=== PATIENT | female | born 2000 | race Caucasian/White ===

== ENCOUNTER 2020-03-09 14:13 | Emergency (ER) | payer OTHER, SELFPAY ==
[2020-03-09 14:35] VITALS: BP 130/81; PULSE 90; RESP 16; TEMP 36.8; O2SAT 98
--- NOTE | 2020-03-09 14:40 | ED.GENADULT ---
HPI - General Adult General Chief complaint: Upper Respiratory Infection Stated complaint: ASthma and chest pains Time Seen by Provider: 03/09/20 14:40 Source: patient and RN notes reviewed Mode of arrival: ambulatory Limitations: no limitations History of Present Illness HPI narrative: 19-year-old female presents with complaints of upper respiratory infection, rhinorrhea, intermittent dry cough at night, and intermittent wheezing for the past 4 months. Isabelle with some relief. Masha says symptoms increased over the last 2-3 months with intermittent chest wall discomfort with deep breathing. No facial swelling. Intermittent dry cough at night. Nasal congestion and rhinorrhea. No chest pain or shortness of breath. No exacerbating factors. Denies fever or chills. Denies sore throat, headaches, weakness, fatigue, myalgia. Denies chest pain or dyspnea. Denies diarrhea, nausea, vomiting, and abdominal pain. Tolerating po intake well. Remains active. Denies recent traveling. Denies concern for COVID-19 or exposures been home since [id number] order except for essential household needs, limiting work (no exposure to the public), and return home per Masha. Masha denies being , LMP 11/2018 on continuous control. Some parts of this dictation were generated by voice recognition software and may contain typographical and/or grammatical inaccuracies. Related Data Home Medications Medication Instructions Recorded Confirmed norethindrone-e.estradiol-iron tablet 03/09/20 [12/11 (28)] quetiapine mg PO 03/09/20 Allergies Allergy/AdvReac Type Severity Reaction Status Date / Time No Known Drug Allergies Allergy Unknown Verified 01/15/19 16:51 Review of Systems Review of Systems: Narrative: CONSTITUTIONAL: Denies fever, chills, sweats. EYES: Denies visual changes, redness, discharge. ENT: Complains of rhinorrhea, congestion. Denies sore throat, otalgia. CARDIOVASCULAR: Denies chest pain, palpitations, edema. RESPIRATORY: Denies dyspnea. Complains of intermittent dry cough at night, intermittent wheezing. GASTROINTESTINAL: Denies abdominal pain, nausea, vomiting, diarrhea. GENITOURINARY: Denies dysuria, hematuria, abnormal discharge. SKIN: Denies rash or itching. MUSCULOSKELETAL: Denies acute back pain, joint pain, or myalgia. Complains of intermittent chest wall tenderness. NEUROLOGIC: Denies numbness or focal weakness. PSYCHIATRIC: Denies anxiety or depression. All systems reviewed & are unremarkable except as noted in HPI and below. [facility] Past Medical History Medical History (Updated 03/09/20 @ 17:27 by LUIS Manning) Allergies Bipolar disorder Surgical History Surgical History (Updated 03/09/20 @ 14:53 by LUIS Manning) No significant past surgical history Family History Family History (Updated 03/09/20 @ 14:54 by LUIS Manning) Mother Asthma Social History Social History (Updated 03/09/20 @ 14:54 by LUIS Manning) Smoking status: Never smoker Second hand tobacco smoke exposure: No Alcohol intake: never Substance use: never Living arrangements: with family Occupation/Education: occupation Gender identity (if verbalized by the patient): Female Comments At time of signature, agree with nurse past medical, surgical, social, and family history. There is no relevant family history pertinent to the presenting complaint. Exam Narrative: Exam Narrative: GENERAL: This is a well-nourished, well-developed patient, in no apparent distress. Talks in full sentences and ambulates with steady gait without dyspnea. HEAD: normocephalic, atraumatic. EYES: PERRL. Sclera clear/white. Vision is grossly intact. NOSE: External nose normal with no obvious nasal discharge, nares with moderate redness and enlarged turbinates, clear rhinorrhea. THROAT: Mucous membranes moist, posterior pharynx with PND, no erythema, no exudate, and normal tons
== END 2020-03-09 15:09 | disposition home or self-care (01) ==
PROVIDERS: Emergency Provider Nurse Practitioner Family; PCP Pediatrics
DX: J06.9 Acute upper respiratory infection, unspecified (principal); R03.0 Elevated blood-pressure reading, without diagnosis of hypertension
CPT/HCPCS: 99213; G0463

== ENCOUNTER 2024-07-29 15:50 | Emergency (ER) | payer BC, SELFPAY ==
[2024-07-29 15:56] VITALS: BP 134/80; PULSE 119; RESP 20; TEMP 37.1; O2SAT 100
[2024-07-29 16:23] LABS: EDINFLUBSCREEN Negative (Negative); EDSTREPNEGPOS1 Negative (Negative)
--- NOTE | 2024-07-29 16:27 | ED.URI ---
HPI - URI/Sore Throat General Chief Complaint: Upper Respiratory Infection Stated Complaint: throat Time Seen by Provider: 07/29/24 16:17 Source: patient, RN notes reviewed and old records reviewed Mode of arrival: ambulatory Limitations: no limitations History of Present Illness HPI Narrative: 23-year-old female to Express Care for complaint of sore throat and headache that started yesterday morning. Patient denies fever, difficulty swallowing, shortness of breath, ear pain, allergies, pertinent medical history. Patient tech cardiac in triage. Patient resting comfortably in exam room. Respirations even and nonlabored. Patient able to speak in full sentences without difficulty. Patient in no acute distress. Related Data Home Medications Medication Instructions Recorded Confirmed norethindrone 1 mg-ethinyl tablet 03/09/20 estradiol 20 mcg (21)-iron 75 mg (7) tablet (12/11 (28)) quetiapine 50 mg tablet,extended mg PO 03/09/20 release 24 hr Allergies Allergy/AdvReac Type Severity Reaction Status Date / Time No Known Drug Allergies Allergy Unknown Verified 01/15/19 16:51 Review of Systems Review of Systems: All systems reviewed & are unremarkable except as noted in HPI and below Constitutional: Constitutional: Reports as per HPI and Reports headache(s) Eyes: Eyes: Reports no additional eye complaints ENT: Reports as per HPI and Reports sore throat Cardiovascular: Cardiovascular: Reports no additional cardiovascular complaints, Denies chest pain and Denies dyspnea Respiratory: Respiratory: Reports no additional respiratory complaints, Denies cough and Denies dyspnea Musculoskeletal: Musculoskeletal: Reports no additional musculoskeletal complaints Neurologic: Reports system reviewed and no additional complaints, except as documented Psychiatric: Psychiatric: Reports no additional psychiatric complaints [facility] Past Medical History Medical History Allergies Bipolar disorder Surgical History Surgical History No significant past surgical history Family History Family History Mother Asthma Social History Social History Smoking status: Never smoker Second hand tobacco smoke exposure: No Alcohol intake: never Substance use: never Living arrangements: with family Occupation/Education: occupation Gender identity (if verbalized by the patient): Female Comments At the time of my signature, I reviewed and agree with the nursing past medical, surgical, social, and family history. There is no relevant family history pertinent to the patient complaint. Exam Const: General: cooperative, no acute distress, alert, tired appearing, uncomfortable and well nourished Nutritional Appearance: well nourished Orientation/consciousness: patient oriented x3 Limitations: no limitations HENMT: Head: normal to inspection Ears: external ears normal Face/Nose/Sinus: Normal external nose present, Normal nares present, normal facial exam, No erythema and No edema Face and sinus: normal facial exam, no erythema and no edema Mouth: Yes Normal oral and palatal mucosa present Throat: posterior oropharynx abnormal erythema Eyes: General: appearance normal, both eyes and all related structures Neck: Neck: normal visual inspection, full ROM and no meningeal signs Lymphatic: no lymphadenopathy noted and no lymphedema noted Chest: Chest palpation & inspection: normal inspection of the chest Resp: Effort & Inspection: normal respiratory effort and able to speak in complete sentences Auscultation: clear to auscultation bilaterally Cardio: Jugular venous distension: no JVD Rate: regular rate Rhythm: regular rhythm Back/Spine/Pelvis: Cervical Spine: cervi
[2024-08-04 15:35] LABS: EDINFLUASCREEN Negative (Negative)
== END 2024-07-29 16:39 | disposition home or self-care (01) ==
PROVIDERS: Emergency Provider Nurse Practitioner Family; PCP Physician Assistant
DX: J02.9 Acute pharyngitis, unspecified (principal); R51.9 Headache, unspecified; Z20.822 Contact with and (suspected) exposure to COVID-19
CPT/HCPCS: 87081; 87426; 87804; 87880; 99213; G0463

== ENCOUNTER 2025-01-27 18:07 | Emergency (ER) | payer OTHER, SELFPAY ==
--- NOTE | ~2025-01-27 | XR_ITS ---
XR foot RT min 3V Ordering provider: LUIS Madrid History: . Impression 1 cm from the sigrid by. Pt fell and twisted ankle coming down stairs . Comparison: None. FINDINGS: BONES: No acute fracture or dislocation. JOINT SPACES: Normal. No tarsal coalition. SOFT TISSUES: Normal. IMPRESSION: No acute osseous abnormality of the right foot. Reviewed, dictated and finalized at location A. [employer]
--- NOTE | ~2025-01-27 | XR_ITS ---
XR ankle RT min 3V Ordering provider: LUIS [place] History: . Fall . Comparison: None. FINDINGS: BONES: No acute fracture or dislocation. JOINT SPACES: Normal. SOFT TISSUES: Normal. Calcaneus spur. IMPRESSION: No acute osseous abnormality of the right ankle. Reviewed, dictated and finalized at location A. [employer]
--- OUTSIDE RECORDS SUMMARY | 2025-01-27 18:10 | XMS_ITS | Clinical Summary ---
Author Organization [facility] Address [address] [place] [address] Care Team Providers Care Reiki Practitioner Name Role Phone Unavailable Primary Care Provider Unavailabl e Source Comments [facility],non-owned Affiliates and Associated Physician Practices is amultiple site organization consisting of ambulatory clinics and hospital sitesin [place], [place], [place] and [place]. This disclosure is being madepursuant to the Care Everywhere program and may not contain all information available regarding this patient. Last updated 18.[facility] Allergies No known active allergies Medications * Be aware that medications may not be up to date on this document. Alwaysverify current medications with the patient. Medication Sig Dispensed Refills Start Date End Date Status AUROVELA FE 12/11 1-20 MG-MCG tablet TAKE 1 TABLET BY MOUTH ONCE DAILY 84 tablet 04/16/2022 Active Active Problems Problem Noted Date Diagnosed Date Anxiety and depression 08/06/2020 Overview (08/06/2020): Seroquel by pedgraeme 2019 Lexapro 2019, sleep issues Screening for condition 05/13/2018 Overview (05/13/2018): 05/10/2018: GC/CT/TV neg Immunizations Name Administration Dates Next Due DTaP VACCINE IM (6wk-6yrs) 06/30/2006,,02/16/2001,12/16 HEP A PEDS 2 DOSE 08/16/2007,06/30/2006 HEP B VACCINE, PED/ADOL 2001,2000, HIB-PRP-T 4 DOSE 12/12/2001, 1,2000,10/21 Human Papilloma Virus Nineva lent Vaccine 12/28/2017 Human Papilloma Virus Jonatan valent Vaccine 08/31/2015,07/01/2015 INFLUENZA VACCINE, QUADR. (F LUZONE; FLULAVAL; FLUARIX; AFLURIA QUADRIVALENT; 6MO+), 0.5 ML (IIV4) 12/28/2017 MENINGOCOCCAL CONJUGATE (MCV4P) 12/28/2017,05/15 MMR 06/30/2006,2001 POLIO IPV 06/30/2006, 1,2000,10/21 TDAP (7yrs+) 05/15/2013 VARICELLA 12/28/2017,07/01/2015 Family History Relation Name Status Comments Father Alive Mother Alive half-brother Alive half-sister Alive Social History Tobacco Use Types Packs/Day Years Used Date Smoking Tobacco: Never Smokeless Tobacco: Never Alcohol Use Standard Drinks/Week Comments No 0 (1 standard drink = 0.6 oz pur e alcohol) PHQ-2 Answer Date Recorded PHQ2 TOTAL SCORE 0 05/13/2021 Sex and Gender Information Value Date Recorded Sex Assigned at Not on file Gender Identity Not on file Sexual Orientation Not on file Last Filed Vital Signs Vital Sign Reading Time Taken Comments Blood Pressure 128/79 05/13/2021 3:04 PM CDT Pulse 80 05/13/2021 3:04 PM CDT Temperature 37.3 C (99.1 F) 05/15/2019 11:56 AM CDT Respiratory Rate - - Oxygen Saturation 99% 05/13/2021 3:04 PM CDT Inhaled Oxygen Concentration - - Weight 56.9 kg (125 lb 6.4 oz) 05/13/2021 3:04 P M CDT Height 162.6 cm (5' 4 ) 05/13/2021 3:04 PM CDT Body Mass Index 21.52 05/13/2021 3:04 PM CDT Plan of Treatment Health Maintenance Due Date Last Done Comments PAP SMEAR 2000 HIV SCREENING 2015 HEPATITIS C SCREENING 08/11/2018 CHLAMYDIA/GONORRHEA SCREENING 05/13/2022 05/13/2021, 02/01/2020, 05/10/2018 DTAP/TDAP/TD VACCINES (6 - Td or Tdap) 05/15/2023 05/15/2013, 06/30/2006, 12/12/2001, Additional history exists COVID-19 VACCINE (2023- season) 2024 INFLUENZA VACCINE (#1) 2024 12/28/2017 DEPRESSION SCREENING 11/22/2024 ZOSTER VACCINE (1 of 2) 2050 HEPATITIS B VACCINE Completed 2001, 2000, 2000 HIB VACCINE Completed 12/12/2001, 01/21, 2000, Additional history exists HPV VACCINE Completed 12/28/2017, 08/22, 07/01/2015 MENINGOCOCCAL VACCINE Completed 12/28/2017, 013 MENINGOCOCCAL (Group B) VACCINE Aged Out No longer eligible based on patient's age to complete this topic PNEUMOCOCCAL VACCINE Aged Out No long er eligible based on patient's age to complete this topic Goals Goal Patient Goal Type Associated Problems Recent Progress Patient-Stated? Author Use safety retraint in car Lifestyle On track( 019 11:52 AM CDT) No Dorcas Mendez MA Procedures Procedure Name Priority Date/Time Associated Diagnosis Comments CHLAMYDIA + GC + TRICH DNA AMPL Routine 05/13/2021 3:26 PM CDT Routine screening for STI (sexually transmitted infection) from Last 3 Months or Most Recently Relevant to Health Maintenance Results * CHLAMYDIA + GC + TRICH DNA AMPL (05/13/2021 3:26 PM CDT) Chlamydia trachomatis DORCAS Negative Negative [facility] ACCOUNT BILL GC DNA Probe Negative Negative [facility] ACCOUNT BILL Trichomonas vaginalis by DORCAS Negative Negative [facility] ACCOUNT BILL Microbiology ENTIRE URETHRA / Unknown 05/13/2021 3:26 PM CDT 05/13/2021 Narrative Resulting Agency Comment Lab Testing performed at: [facility] [address] Tess W[place] [id number] Kimber Marte MD LAB - MICROBIOLOGY O RDERABLES [facility] ACCOUNT BILL [id number] [place] [address] from Last 3 Months or Most Recently Relevant to Health Maintenance ANNETTE BILL Personal/Family [address] [address]
--- OUTSIDE RECORDS SUMMARY | 2025-01-27 18:10 | XMS_ITS | Clinical Summary ---
Author Organization [facility] Address [address] [place] [address] Phone Care Team Providers Care Game Manager Name Role Phone Ky Thomas MD Primary Care Provider [phone] Allergies No known active allergies Medications FLUoxetine (PROZAC) 10 MG Capsule Take 10 mg by mouth daily. 06/22/2016 Active Social History Tobacco Use Types Packs/Day Years Used Date Smoking Tobacco: Never Comments Unknown Sex and Gender Information Value Date Recorded Sex Assigned at Not on file Legal Sex Female 9:13 PM CDT Gender Identity Not on file Sexual Orientation Not on file Last Filed Vital Signs Vital Sign Reading Time Taken Comments Blood Pressure 106/65 07/30/2016 12:00 AM CDT Pulse 100 07/29/2016 1:50 PM CDT Temperature 36.6 C (97.8 F) 07/30/2016 12:00 AM CDT Respiratory Rate 17 07/30/2016 12:00 AM CDT Oxygen Saturation 99% 07/30/2016 12:00 AM CDT Inhaled Oxygen Concentration - - Weight 48.8 kg (107 lb 9.4 oz) 07/29/2016 1:50 P M CDT Height 162.6 cm (5' 4 ) 07/29/2016 1:50 PM CDT Body Mass Index 18.47 07/29/2016 1:50 PM CDT Plan of Treatment Not on file Insurance [facility] Care Teams Game Manager Relationship Specialty Start Date End Date Ky Thomas MD PCP - General Pediatrics 07/29/16
--- OUTSIDE RECORDS SUMMARY | 2025-01-27 18:10 | XMS_ITS | Clinical Summary ---
Author Organization [facility] Address [address] [place] [phone] Care Team Providers Care Agricultural Crop Farm Manager Name Role Phone Maine Mackenzie MD Primary Care Provider [phone] Allergies No known active allergies Medications norethindrone Ac-Eth estradiol (,) 1-20 mg-mcg tablet Take 1 Tablet by mouth daily. Active hydrOXYzine HCL (ATARAX) 10 mg tablet Take 1 Tablet (10 mg) by mouth 4 times daily as needed for anxiety 120 Tablet 02/24/2024 12:02 PM CDT 02/23/2024 Active venlafaxine (EFFEXOR XR) 37.5 mg Extended Release 24 hour capsule Take 1 Capsule (37.5 mg) by mouth daily in the morning. 30 Capsule 02/24/2024 12:02 PM CDT 02/23/2024 Active hydrOXYzine HCL (ATARAX) 10 mg tablet Take 1 Tablet (10 mg) by mouth up to 4 times daily as needed for anxiety 360 Tablet 03/23/2024 6:20 PM CDT 03/22/2024 Active hydrOXYzine HCL (ATARAX) 10 mg tablet Take 1 Tablet (10 mg) by mouth 4 times daily as needed for anxiety 120 Tablet 03/22/2024 Active venlafaxine (EFFEXOR XR) 75 mg Extended Release 24 hour capsule Take 1 capsule by mouth every morning 90 Capsule 03/23/2024 6:20 PM CDT 03/22/2024 Active QUEtiapine (SEROquel) 300 mg tablet Take 1 tablet by mouth at bedtime 90 Tablet 04/18/2024 12:45 PM CDT 03/22/2024 Active hydrOXYzine HCL (ATARAX) 25 mg tablet Take 1 Tablet (25 mg) by mouth up to 3 times daily as needed for anxiety. 270 Tablet 09/14/2024 9:40 AM CDT 09/11/2024 Active hydrOXYzine HCL (ATARAX) 25 mg tablet Take 1 Tablet (25 mg) by mouth up to 3 times daily as needed for anxiety. 270 Tablet 12/06/2024 4:20 PM HTML DEVELOPER 12/04/2024 Active QUEtiapine (SEROquel) 300 mg tablet Take 1 Tablet (300 mg) by mouth daily at bedtime. 90 Tablet 12/06/2024 4:20 PM HTML DEVELOPER 12/04/2024 Active venlafaxine (EFFEXOR XR) 37.5 mg Extended Release 24 hour capsule Take 1 Capsule (37.5 mg) by mouth daily in the morning along with 75mg cap (total of 112.5mg daily). 90 Capsule 12/06/2024 4:20 PM HTML DEVELOPER 12/04/2024 Active venlafaxine (EFFEXOR XR) 75 mg Extended Release 24 hour capsule Take 1 Capsule (75 mg) by mouth daily in the morning along with 37.5mg cap (total of 112.5mg daily). 90 Capsule 12/06/2024 4:20 PM HTML DEVELOPER 12/04/2024 Active Active Problems Problem Noted Date Diagnosed Date PETR (generalized anxiety disorder) 01/27/2024 Bipolar affective disorder in remission 01/27/20 ADHD (attention deficit hype ractivity disorder), combined type 01/27/2024 Encounters Date Type Department Care Team Description 01/24/2025 External Device Data [facility] ABSTRACTION Provider, Abstract 01/10/2025 External Device Data [facility] ABSTRACTION Provider, Abstract 12/20/2024 External Device Data [facility] ABSTRACTION Provider, Abstract 12/14/2024 External Device Data [facility] ABSTRACTION Provider, Abstract from Last 3 Months Immunizations Immunization Administration Dates Next Due (ACTHIB/HIBERIX)(2 MOS-5 YRS /6 WKS-4 YRS) HAEMOPHILUS INFLUENZAE TYPE B VACCINE (HIB), PRP-T CONJUGATE, 4 DOSE, 0.5 ML IM 12/12/2001,02/16/2001,2000,10/21 (ADACEL/BOOSTRIX)(10 YR UP) TDAP VACCINE, 0.5ML, IM 01/27/2024,05/15/2013 (GARDASIL 9)(9-45 YRS) HUMAN PAPILLOMAVIRUS VACCINE, TYPES 6, 11, 16, 18, 31, 33, 45, 52, 58, NONAVALENT (9VHPV), 2 OR 3 DOSE, IM 12/28/2017 (GARDASIL)(9-45 YRS) HUMAN PAPILLOMAVIRUS VACCINE, TYPES 6, 11, 16, 18, QUADRIVALENT (4VHPV), 3 DOSE, IM 08/31/2015,07/01/2015 (HAVRIX/VAQTA)(12 MO-18 YRS) HEPATITIS A VACCINE 0.5 ML PED/ADOL 2 DOSE, IM 08/16/2007,06/30/2006 (INFANRIX)(6 WKS-6 YRS) DIPT HERIA, TETANUS TOXOIDS, AND ACCELLULAR PERTUSSIS VACCINE (DTAP), 0.5 ML IM 06/30/2006,12/12/2001,02/16/2001,12/16 (IPOL)(6 WKS AND UP) POLIOVI KENIA VACCINE, INACTIVATED (IPV), 3 DOSE, SUBCUT OR IM 06/30/2006,02/16/2001,2000,10/21 (M-M-R II/PRIORIX)(12 MO UP) MEASLES, MUMPS AND RUBELLA VIRUS VACCINE, 0.5 ML IM/SUBCUT 06/30/2006,2001 (MENACTRA)(9 MO-55 YR) MENIN GOCOCCAL POLYSACCHARIDE A, C, Y AND W-135 DIPTHERIA TOXOID CONJUGATE VACCINE, (PF), 0.5ML, IM 12/28/2017,05/15/2013 (RECOMBIVAX HB/ENGERIX-B)(0- 19 YRS) HEPATITIS B VACCINE 5 MCG/0.5 ML OR 10 MCG/0.5 ML PED OR ADOL 3 DOSE (PF), IM 2001,2000,2000 (VARIVAX)(12 MOS UP)VARICELL A VIRUS VACCINE (PF) 0.5 ML, SUB CUT 12/28/2017,07/01/2015 INFLUENZA VACCINE QUADRIVALE NT 6 MOS UP PF IM 12/28/2017 Family History Medical History Relation Name Comments No Known Problems Brother No Known Problems Daughter No Known Problems Father No Known Problems Maternal Grandfather No Known Problems Maternal Grandmother Lung Cancer Maternal Great-grandfather Colon Cancer Maternal Great-grandmother ADHD Mother No Known Problems Other Colon Cancer Paternal Grandfather No Known Problems Paternal Grandmother No Known Problems Sister No Known Problems Son Breast Cancer Neg Hx Ovarian Cancer Neg Hx Uterine Cancer Neg Hx Relation Name Status Comments Brother Daughter Father Maternal Grandfather Maternal Grandmother Maternal Great-grandfather Alive Maternal Great-grandmother Alive Mother Other Paternal Grandfather Paternal Grandmother Sister Son Social History Tobacco Use Types Packs/Day Years Used Date Smoking Tobacco: Never Passive Smoke Exposure: Never Smokeless Tobacco: Never Tobacco Cessation:Counseling Given: No Alcohol Use Standard Drinks/Week Comments Yes 0 (1 standard drink = 0.6 oz pur e alcohol) rarely Comments No Sex and Gender Information Value Date Recorded Sex Assigned at Not on file Legal Sex Female 10:08 PM CDT Gender Identity Not on file Sexual Orientation Not on file Last Filed Vital Signs Vital Sign Reading Time Taken Comments Blood Pressure 122/78 03/09/2024 3:38 PM CDT Pulse 103 03/09/2024 3:38 PM CDT Temperature 36.2 C (97.1 F) 03/09/2024 3:38 PM CDT Respiratory Rate 12 03/09/2024 3:38 PM CDT Oxygen Saturation 99% 03/09/2024 3:38 PM CDT Inhaled Oxygen Concentration - - Weight 70.8 kg (156 lb) 03/09/2024 3:38 PM CDT Height 162.6 cm (5' 4 ) 03/09/2024 3:38 PM CDT Body Mass Index 26.78 03/09/2024 3:38 PM CDT Plan of Treatment Upcoming Encounters Date Type Department Care Team (Late st Contact Info) Description 03/09/2025 9:30 AM CDT Office Visit [facility] [address] [place] [address] Maine Mackenzie MD [address] [place] [address] Health Maintenance Due Date Last Done Comments INFLUENZA VACCINE (#1) 2024 01/27/2024, 2017 Preventative Visit- Commercial 11/22/2024 03/09/2024, 05/13/2021, 08/06/2020, Additional history exists CERVICAL CANCER SCREENING 03/09/2027 03/09/2024 DTAP/TDAP/TD VACCINES (7 - Td or Tdap) 01/26/2034 01/27/2024, 05/15/2013, 06/30/2006, Additional history exists HEPATITIS B VACCINES Completed 2001, 2000, 2000 HPV VACCINES Completed 12/28/2017, 08/22, 07/01/2015 PNEUMOCOCCAL VACCINE 0-49 YEARS Aged Out No longer eligible based on patient's age to complete this topic Procedures Procedure Name Priority Date/Time Associated Diagnosis Comments CERV/VAG CYTO AGE BASED SCREEN PAP W CT/NG Routine 03/09/2024 4:17 PM CDT Screening for cervical cancer from Last 3 Months or Most Recently Relevant to Health Maintenance Results * CERV/VAG CYTO AGE BASED SCREEN PAP W CT/NG (03/09/2024 4:17 PM CDT) COMMENT (PAP): [facility] Comment: This order for age-based cervical cancer and STI screening follows ACOG guidelines(PB 168, 140, ONC413). See individual assays for performing site location. CLINICAL INFORMATION [facility] Comment:None given LAST MENSTRUAL PERIOD [facility] Comment:NONE GIVEN PREV PAP: [facility] Comment:NONE GIVEN PREV BX: [facility] Comment:NONE GIVEN SOURCE [facility] Comment:Endocervix ADEQUACY: [facility] Comment: Satisfactory for evaluation. Endocervical/transformation zone component present. Age and/or menstrual status not provided PAP INTERP [facility] Comment: Cytology Results: Negative for intraepithelial lesion or malignancy. COMMENT (PAP TEST) [facility] Comment: This Pap test has been evaluated with computer assisted technology. NAVAL SURFACE FIRE SUPPORT PLANNER: Linh Keys- [place] Comment: BLANCO, CT(ASCP) CT Screening location: [facility] [address] [place] [address] EXPLANATORY NOTE [facility] Comment: EXPLANATORY NOTE: The Pap is a screening test for cervical cancer. It is not a diagnostic test and is subject to false negative and false positive results. It is most reliable when a satisfactory sample, regularly obtained, is submitted with relevant clinical findings and history, and when the Pap result is evaluated along with historic and current clinical information. C TRAC RNA NOT DETECTED NOT DETECTED [facility] N.GONORRHOEAE RNA, TMA NOT DETECTED NOT DETECTED [facility] COMMENT INFECTIOUS DISEASE [facility] Comment: The analytical performance characteristics of this assay, when used to test SurePath(TM) specimens have been determined by [facility]. The modifications have not been cleared or approved by the FDA. This assay has been validated pursuant to the CLIA regulations and is used for clinical purposes. For additional information, please refer to https://education.Skysheet/faq/RCB865 (This link is being provided for information/ educational purposes only.) Test Performed at: [facility] [address] [place] [address] Yu Hackett MD Genital SWAB OF ENDOCERVIX / Unknown 03/09/2024 4:17 PM CDT 03/10/2024 3:09 AM CDT Maine Mackenzie MD PATHOLOGY/CYTOLOGY ORDERABLE S Final Result [facility] [phone] [facility] [place] [address] from Last 3 Months or Most Recently Relevant to Health Maintenance Insurance [employer] Member Subscriber Plan / Payer (Ef fective 2024-Present) Name:Annette Bill Relation to Subscriber:Child Subscriber ID:Not on file Payer ID:Not on file Type:Not on file Address: [place] Care Teams Agricultural Crop Farm Manager Relationship Specialty [place] [address] [address] [place] [phone] PCP - General Family Practice 01/24/24
--- OUTSIDE RECORDS SUMMARY | 2025-01-27 18:10 | XMS_ITS | Referral Summary ---
Author Organization [facility] Motility Count Address [address] [place] [address] Care Team Providers Care Metal Mover Name Role Phone Unavailable Primary Care Provider Unavailabl e Source Comments [facility],non-owned Affiliates and Associated Physician Practices is amultiple site organization consisting of ambulatory clinics and hospital sitesin [place], [place], [place] and [place]. This disclosure is being madepursuant to the Care Everywhere program and may not contain all information available regarding this patient. Last updated 18.[facility] Motility Count Allergies No known active allergies Medications * [...] 06/30/2006, 1,2000,10/21 TDAP (7yrs+) 05/15/2013 VARICELLA 12/28/2017,07/01/2015 Social History Tobacco Use Types Packs/Day Years [...] 05/13/2021 3:04 PM CDT Plan of Treatment Not on file Goals Goal Patient Goal Type Associated Problems [...] Resulting Agency Comment Lab Testing performed at: [facility] [id number] Kimber Marte MD LAB - MICROBIOLOGY O RDERABLES [facility] ACCOUNT BILL [address] [place] [address] from Last 3 Months or Most Recently Relevant to Health Maintenance LANDYANNETTE BARRERA Personal/Family [address] [address]
--- OUTSIDE RECORDS SUMMARY | 2025-01-27 18:10 | XMS_ITS | Patient Health Summary ---
Author Organization [facility] Address [address] [place] [address] Care Team Providers Care Fire Extinguisher Repairer Inspector Name Role Phone Unavailable Primary Care Provider Unavailabl e Note from [facility],non-owned Affiliates and Associated Physician Practices is amultiple site organization consisting of ambulatory clinics and hospital sitesin [place], [place], [place] and [place]. This disclosure is being madepursuant to the Care Everywhere program and may not contain all information available regarding this patient. Last updated 18.[facility] Allergies No known active allergies Medications * Be aware that medications may not be up to date on this document. Alwaysverify current medications with the patient. * AUROVELA FE 12/11 1-20 MG-MCG tablet(Started 04/16/2022) TAKE 1 TABLET BY MOUTH ONCE DAILY Active Problems Problem Noted Date Diagnosed Date Anxiety and depression 08/06/2020 Screening for condition 05/13/2018 Immunizations * DTaP VACCINE IM (6wk-6yrs)(Given 06/30/2006, 12/12/2001, 02/16/2001, 2000) * HEP A PEDS 2 DOSE(Given 08/16/2007, 06/30/2006) * HEP B VACCINE, PED/ADOL(Given 2001, 2000, 2000) * HIB-PRP-T 4 DOSE(Given 12/12/2001, 02/16/2001, 2000, 2000) * Human Papilloma Virus Ninevalent Vaccine(Given 12/28/2017) * Human Papilloma Virus Quadrivalent Vaccine(Given 08/31/2015, 07/01/2015) * INFLUENZA VACCINE, QUADR. (FLUZONE; FLULAVAL; FLUARIX; AFLURIA QUADRIVALENT; 6MO+), 0.5 ML (IIV4)(Given 12/28/2017) * MENINGOCOCCAL CONJUGATE (MCV4P)(Given 12/28/2017, 05/15/2013) * MMR(Given 06/30/2006, 2001) * POLIO IPV(Given 06/30/2006, 02/16/2001, 2000, 2000) * TDAP (7yrs+)(Given 05/15/2013) * VARICELLA(Given 12/28/2017, 07/01/2015) Social History Tobacco Use Types Packs/Day Years [...] Mass Index 21.52 05/13/2021 3:04 PM CDT Procedures * CHLAMYDIA + GC + TRICH DNA AMPL(Performed 05/13/2021) Performed for Routine screening for STI (sexually transmitted infection) * HCG BLOOD QUALITATIVE(Performed 08/13/2020) Performed for Routine general medical examination at a health care facility, Anxiety and depression * LIPID PROFILE(Performed 08/13/2020) Performed for Routine general medical examination at a health care facility, Anxiety and depression * VITAMIN B12(Performed 08/13/2020) Performed for Routine general medical examination at a health care facility, Anxiety and depression * VITAMIN D 25-HYDROXY(Performed 08/13/2020) Performed for Routine general medical examination at a health care facility, Anxiety and depression, Vitamin D deficiency * TSH REFLEX FREE T4(Performed 08/13/2020) Performed for Routine general medical examination at a health care facility, Anxiety and depression * COMPREHENSIVE METABOLIC PANEL(Performed 08/13/2020) Performed for Routine general medical examination at a health care facility, Anxiety and depression * CBC W/O DIFFERENTIAL(Performed 08/13/2020) Performed for Routine general medical examination at a health care facility, Anxiety and depression * CHLAMYDIA + GC + TRICH DNA AMPL(Performed 02/01/2020) Performed for Screening for venereal disease * CYTOMEGALOVIRUS ANTIBODY IGM BLOOD(Performed 12/06/2018) Performed for Fatigue, unspecified type * CYTOMEGALOVIRUS ANTIBODY IGG BLOOD(Performed 12/06/2018) Performed for Fatigue, unspecified type * JUNIOR-ESPAÑA VIRUS ANTIBODY PANEL(Performed 12/06/2018) Performed for Fatigue, unspecified type * VITAMIN D 25-HYDROXY(Performed 12/06/2018) Performed for Fatigue, unspecified type * TSH(Performed 12/06/2018) Performed for Fatigue, unspecified type * T4 FREE(Performed 12/06/2018) Performed for Fatigue, unspecified type * ERYTHROCYTE SEDIMENTATION RATE(Performed 12/06/2018) Performed for Arthralgia, unspecified joint * VERNA BLOOD SCREEN(Performed 12/06/2018) Performed for Arthralgia, unspecified joint * COMPREHENSIVE METABOLIC PANEL(Performed 12/06/2018) Performed for Fatigue, unspecified type * CBC W AUTO DIFFERENTIAL(Performed 12/06/2018) Performed for Fatigue, unspecified type * CHLAMYDIA + GC + TRICH DNA AMPL(Performed 05/10/2018) Performed for Exposure to STD * IMAGING/RADIOLOGY/XRAY RESULTS ORDER(Performed 12/28/2012) Results * CHLAMYDIA + GC + TRICH DNA AMPL (05/13/2021 3:26 PM CDT) Only the most recent of3 resultswithin the time period is included. Chlamydia trachomatis DORCAS Negative Negative [facility] ACCOUNT BILL GC DNA Probe Negative Negative [facility] ACCOUNT BILL Trichomonas vaginalis by DORCAS Negative Negative [facility] ACCOUNT BILL Microbiology ENTIRE URETHRA / Unknown 05/13/2021 3:26 PM CDT 05/13/2021 Narrative Resulting Agency Comment Lab Testing performed at: [facility] [place]una[place]cido [phone] Kimber Marte MD LAB - MICROBIOLOGY O RDERABLES Performing Organization Address City/[facility]/ZIP Co de Phone Number [facility] ACCOUNT BILL [address] [place] [address] * HCG BLOOD QUALITATIVE (08/13/2020 11:55 AM CDT) HCG Qual Serum Negative Negative <6 mIU/mL [facility] ACCOUNT BILL Comment:FASTING Blood BLOOD SPECIMEN / Unknown 08/13/2020 11:55 AM CDT 08/13/2020 Narrative Resulting Agency Comment Lab Testing performed at: [facility] [place] [address] [facility] [id number] Ravi Montalvo MD LAB - CHEMISTRY AYUSH PETERSON Performing Organization Address [facility] Co de Phone Number [facility] ACCOUNT BILL [address] [place] [address] * (ABNORMAL) LIPID PROFILE (08/13/2020 11:55 AM CDT) Cholesterol 182(H) 100 - 169 mg/dL [facility] ACCOUNT BILL Triglycerides 75 0 - 89 mg/dL [facility] ACCOUNT BILL HDL Cholesterol 54 >39 mg/dL [facility] ACCOUNT BILL VLDL Calculated 14 5 - 40 mg/dL [facility] ACCOUNT BILL LDL Calculated 114(H) 0 - 109 mg/dL [facility] ACCOUNT BILL Comment NOT NEEDED [facility] ACCOUNT BILL Comment: FASTING Ancillary determined the test is not needed. Blood BLOOD SPECIMEN / Unknown 08/13/2020 11:55 AM CDT 08/13/2020 Narrative Resulting Agency Comment Lab Testing performed at: [facility] [place] [address] [facility] [id number] Ravi Montalvo MD LAB - CHEMISTRY AYUSH PETERSON Performing Organization Address City/[facility]/ZIP Co de Phone Number [facility] ACCOUNT BILL [address] [place] [address] * TSH REFLEX FREE T4 (08/13/2020 11:54 AM CDT) TSH 1.260 0.450 - 4.500 uIU/mL [facility] ACCOUNT BILL Comment:FASTING Blood BLOOD SPECIMEN / Unknown 08/13/2020 11:54 AM CDT 08/13/2020 Narrative Resulting Agency Comment Lab Testing performed at: [facility] [place] [address] [facility] [id number] Ravi Montalvo MD LAB - CHEMISTRY AYUSH PETERSON Performing Organization Address [facility] Co de Phone Number [facility] ACCOUNT BILL [address] [place] [address] * VITAMIN D 25-HYDROXY (08/13/2020 11:54 AM CDT) Only the most recent of2 resultswithin the time period is included. Vitamin D, 25 Hydroxy 30.1 30.0 - 100.0 ng/mL [facility] ACCOUNT BILL Comment: Vitamin D deficiency has been defined by the [place] of Medicine and an Endocrine Society practice guideline as a level of serum 25-OH vitamin D less than 20 ng/mL (1,2). The Endocrine Society went on to further define vitamin D insufficiency as a level between 21 and 29 ng/mL (2). 1. IOM ([place] of [employer]). 2010. Dietary reference intakes for calcium and D. [place]: The National Academies Press. 2. Monisha MF, Cari CHA, Jose GOODSON, et al. Evaluation, treatment, and prevention of vitamin D deficiency: an Endocrine Society clinical practice guideline. JCEM. 2010; 96(7):1911-30. FASTING Blood BLOOD SPECIMEN / Unknown 08/13/2020 11:54 AM CDT 08/13/2020 Narrative Resulting Agency Comment Lab Testing performed at: [facility] [place] [address] [facility] [id number] Ravi Montalvo MD LAB - CHEMISTRY AYUSH PETERSON [facility] ACCOUNT BILL [address] [place] [address] * CBC W/O DIFFERENTIAL (08/13/2020 11:54 AM CDT) WBC 7.8 3.4 - 10.8 x10E3/uL [facility] ACCOUNT BILL RBC 4.36 3.77 - 5.28 x10E6/uL [facility] ACCOUNT BILL Hemoglobin 12.3 11.1 - 15.9 g/dL [facility] ACCOUNT BILL Hematocrit 37.5 34.0 - 46.6 % [facility] ACCOUNT BILL MCV 86 79 - 97 fL [facility] ACCOUNT BILL MCH 28.2 26.6 - 33.0 pg [facility] ACCOUNT BILL MCHC 32.8 31.5 - 35.7 g/dL [facility] ACCOUNT BILL RDW 12.8 11.7 - 15.4 % [facility] ACCOUNT BILL Platelet Count 264 150 - 450 x10E3/uL [facility] ACCOUNT BILL nRBC NOT NEEDED [facility] ACCOUNT BILL Comment: FASTING Ancillary determined the test is not needed. Blood BLOOD SPECIMEN / Unknown 08/13/2020 11:54 AM CDT 08/13/2020 Narrative Resulting Agency Comment [facility] [address] [facility] [id number] Ravi Montalvo MD LAB - HEMATOLOGY KAM CRUZ Performing Organization Address City/[facility]/ZIP Co de Phone Number [facility] ACCOUNT BILL [address] [place] [address] * (ABNORMAL) COMPREHENSIVE METABOLIC PANEL (08/13/2020 11:54 AM CDT) Only the most recent of2 resultswithin the time period is included. Glucose 87 65 - 99 mg/dL [facility] ACCOUNT BILL BUN 6 6 - 20 mg/dL [facility] ACCOUNT BILL Creatinine 0.73 0.57 - 1.00 mg/dL [facility] ACCOUNT BILL eGFR by MDRD 120 >59 mL/min/1.7 3 [facility] ACCOUNT BILL eGFR by MDRD 138 >59 mL/min/1.7 3 [facility] ACCOUNT BILL BUN/Creatinine Ratio 8(L) 9 - 23 [facility] ACCOUNT BILL Sodium 137 134 - 144 mmol/L [facility] ACCOUNT BILL Potassium 4.4 3.5 - 5.2 mmol/L [facility] ACCOUNT BILL Chloride 103 96 - 106 mmol/L [facility] ACCOUNT BILL CO2 25 20 - 29 mmol/L [facility] ACCOUNT BILL Calcium 9.3 8.7 - 10.2 mg/dL [facility] ACCOUNT BILL Protein Total 6.7 6.0 - 8.5 g/dL [facility] ACCOUNT BILL Albumin 4.2 3.9 - 5.0 g/dL [facility] ACCOUNT BILL Globulin Total 2.5 1.5 - 4.5 g/dL [facility] ACCOUNT BILL Albumin/Globulin Ratio 1.7 1.2 - 2.2 [facility] ACCOUNT BILL Bilirubin Total 0.3 0.0 - 1.2 mg/dL [facility] ACCOUNT BILL Alkaline Phosphatase 66 39 - 117 IU/L [facility] ACCOUNT BILL AST 15 0 - 40 IU/L [facility] ACCOUNT BILL ALT 14 0 - 32 IU/L [facility] ACCOUNT BILL Comment:FASTING Blood BLOOD SPECIMEN / Unknown 08/13/2020 11:54 AM CDT 08/13/2020 Narrative Resulting Agency Comment Lab Testing performed at: [facility] [id number] Ravi Montalvo MD LAB - CHEMISTRY AYUSH PETERSON Performing Organization Address [facility] de Phone Number [facility] ACCOUNT BILL [address] [place] [address] * VITAMIN B12 (08/13/2020 11:54 AM CDT) Vitamin B12 233 232 - 1,245 pg/mL [facility] ACCOUNT BILL Comment:FASTING Blood BLOOD SPECIMEN / Unknown 08/13/2020 11:54 AM CDT 08/13/2020 Narrative Resulting Agency Comment Lab Testing performed at: [address] [id number] Ravi Montalvo MD LAB - CHEMISTRY AYUSH PETERSON [facility] ACCOUNT BILL [address] [place] [address] * VERNA BLOOD SCREEN (12/06/2018 1:35 PM CHEMICAL LABORATORY TECHNICIAN) Pathologist [facility] VERNA Direct Negative Negative [facility] ACCOUNT BILL Blood BLOOD SPECIMEN / Unknown 12/06/2018 1:35 PM CHEMICAL LABORATORY TECHNICIAN 12/06/2018 Narrative Resulting Agency Comment [facility] [place] [address] [facility] [phone] Ky Thomas MD LAB - CHEMISTRY ORDMel PETERSON Performing Organization Address City/State/[facility] Co de Phone Number [facility] ACCOUNT BILL [address] [place] [address] * CYTOMEGALOVIRUS ANTIBODY IGM BLOOD (12/06/2018 1:35 PM CHEMICAL LABORATORY TECHNICIAN) [facility] Cytomegalovirus Antibody IgM <30.0 0.0 - 29.9 AU/mL [facility] ACCOUNT BILL Comment: Negative <30.0 Equivocal 30.0 - 34.9 Positive >34.9 A positive result is generally indicative of acute infection, reactivation or persistent IgM production. Blood BLOOD SPECIMEN / Unknown 12/06/2018 1:35 PM CHEMICAL LABORATORY TECHNICIAN 12/06/2018 Narrative Resulting Agency Comment [facility] [place] [address] [facility] [place] [id number] Ky Thomas MD LAB - CHEMISTRY AYUSH PETERSON Performing Organization Address City/[facility] Co de Phone Number [facility] ACCOUNT BILL [address] [place] [address] * (ABNORMAL) CYTOMEGALOVIRUS ANTIBODY IGG BLOOD (12/06/2018 1:35 PM CHEMICAL LABORATORY TECHNICIAN) Pathologist [facility] Cytomegalovirus Antibody IgG 0.63(H) 0.00 - 0.59 U/mL [facility] ACCOUNT BILL Comment: A second sample should be collected and tested no less than 2-4 weeks. Negative <0.60 Equivocal 0.60 - 0.69 Positive >0.69 Blood BLOOD SPECIMEN / Unknown 12/06/2018 1:35 PM CHEMICAL LABORATORY TECHNICIAN 12/06/2018 Narrative Resulting Agency Comment [facility] [place] [address] [facility] [id number] Ky Thomas MD LAB - CHEMISTRY AYUSH PETERSON [facility] ACCOUNT BILL [address] [place] [address] * (ABNORMAL) JUNIOR-ESPAÑA VIRUS PANEL (12/06/2018 1:35 PM CHEMICAL LABORATORY TECHNICIAN) [place] Viral Capsid Antigen Antibody IgM <36.0 0.0 - 35.9 U/mL [facility] ACCOUNT BILL Comment: Negative <36.0 Equivocal 36.0 - 43.9 Positive >43.9 [place] Virus Early Antigen Antibody IgG <9.0 0.0 - 8.9 U/mL [facility] ACCOUNT BILL Comment: Negative < 9.0 Equivocal 9.0 - 10.9 Positive >10.9 [place] Viral Capsid Antigen Antibody IgG 156.0(H) 0.0 - 17.9 U/mL [facility] ACCOUNT BILL Comment: Negative <18.0 Equivocal 18.0 - 21.9 Positive >21.9 [place] Virus Antibody IgG Nuclear Antigen 589.0(H) 0.0 - 17.9 U/mL [facility] ACCOUNT BILL Comment: Negative <18.0 Equivocal 18.0 - 21.9 Positive >21.9 Interpretation [facility] ACCOUNT BILL Comment: EBV Interpretation Chart . Interpretation EBV-IgM EA(D)-IgG VCA-IgG EBNA-IgG . EBV Seronegative - - - - Early Phase + - - - Acute Primary + +or- + - Infection Convalescence/Past - +or- + + Infection Reactivated +or- + + + Infection + Antibody Present - Antibody Absent Blood BLOOD SPECIMEN / Unknown 12/06/2018 1:35 PM CHEMICAL LABORATORY TECHNICIAN 12/06/2018 Narrative Resulting Agency Comment [facility] [place] [address] [facility] [phone] Ky Thomas MD LAB - CHEMISTRY AYUSH PETERSON Performing Organization Address City/[facility]/ZIP Co de Phone Number [facility] ACCOUNT BILL [address] [place] [address] * SED RATE AUTO (ESR) (12/06/2018 1:35 PM CHEMICAL LABORATORY TECHNICIAN) Erythrocyte Sedimentation Rate Westergren 10 0 - 32 mm/hr [facility] ACCOUNT BILL Blood BLOOD SPECIMEN / Unknown 12/06/2018 1:35 PM CHEMICAL LABORATORY TECHNICIAN 12/06/2018 Narrative Resulting Agency Comment [facility] [place] [address] [facility] [phone] Ky Thomas MD LAB - HEMATOLOGY ORD ERABLES [facility] ACCOUNT BILL [address] [place] [address] * (ABNORMAL) CBC WITH DIFFERENTIAL (12/06/2018 1:35 PM CHEMICAL LABORATORY TECHNICIAN) WBC 8.6 3.4 - 10.8 x10E3/uL [facility] ACCOUNT BILL RBC 4.50 3.77 - 5.28 x10E6/uL [facility] ACCOUNT BILL Hemoglobin 12.8 11.1 - 15.9 g/dL [facility] ACCOUNT BILL Hematocrit 38.7 34.0 - 46.6 % [facility] ACCOUNT BILL MCV 86 79 - 97 fL [facility] ACCOUNT BILL MCH 28.4 26.6 - 33.0 pg [facility] ACCOUNT BILL MCHC 33.1 31.5 - 35.7 g/dL [facility] ACCOUNT BILL RDW 13.3 12.3 - 15.4 % [facility] ACCOUNT BILL Platelet Count 354 150 - 379 x10E3/uL [facility] ACCOUNT BILL Granulocytes % 50 Not Estab. % [facility] ACCOUNT BILL Lymphocytes % 44 Not Estab. % [facility] ACCOUNT BILL Monocytes % 5 Not Estab. % [facility] ACCOUNT BILL Eosinophils % 1 Not Estab. % [facility] ACCOUNT BILL Basophils % 0 Not Estab. % [facility] ACCOUNT BILL Immature Cells NOT NEEDED [facility] ACCOUNT BILL Comment:Ancillary determined the test is not needed Granulocytes Absolute 4.3 1.4 - 7.0 x10E3/uL [facility] ACCOUNT BILL Lymphocytes Absolute 3.8(H) 0.7 - 3.1 x10E3/uL [facility] ACCOUNT BILL Monocytes Absolute 0.4 0.1 - 0.9 x10E3/uL [facility] ACCOUNT BILL Eosinophils Absolute 0.1 0.0 - 0.4 x10E3/uL [facility] ACCOUNT BILL Basophils Absolute 0.0 0.0 - 0.2 x10E3/uL [facility] ACCOUNT BILL Immature Granulocytes 0 Not Estab. % [facility] ACCOUNT BILL Immature Granulocytes Absolute 0.0 0.0 - 0.1 x10E3/uL [facility] ACCOUNT BILL nRBC NOT NEEDED [facility] ACCOUNT BILL Comment:Ancillary determined the test is not needed Comment Hematology NOT NEEDED [facility] ACCOUNT BILL Comment:Ancillary determined the test is not needed Blood BLOOD SPECIMEN / Unknown 12/06/2018 1:35 PM CHEMICAL LABORATORY TECHNICIAN 12/06/2018 Narrative Resulting Agency Comment [facility] [place] [address] [facility] [id number] Ky Thomas MD LAB - HEMATOLOGY ORD ERACINTHIA [facility] ACCOUNT BILL [address] [place] [address] * TSH (12/06/2018 1:35 PM CHEMICAL LABORATORY TECHNICIAN) TSH 1.850 0.450 - 4.500 uIU/mL [facility] ACCOUNT BILL Blood BLOOD SPECIMEN / Unknown 12/06/2018 1:35 PM CHEMICAL LABORATORY TECHNICIAN 12/06/2018 Narrative Resulting Agency Comment [facility] [place] [address] [facility] [phone] Ky Thomas MD LAB - CHEMISTRY AYUSH PETERSON [facility] ACCOUNT BILL [address] [place] [address] * T4 FREE (12/06/2018 1:35 PM CHEMICAL LABORATORY TECHNICIAN) T4 Free 1.15 0.93 - 1.60 ng/dL [facility] ACCOUNT BILL Blood BLOOD SPECIMEN / Unknown 12/06/2018 1:35 PM CHEMICAL LABORATORY TECHNICIAN 12/06/2018 Narrative Resulting Agency Comment [facility] [place] [address] [facility] [phone] Ky Thomas MD LAB - CHEMISTRY AYUSH PETERSON [facility] ACCOUNT BILL [address] [place] [address] * IMAGING/RADIOLOGY/XRAY RESULTS ORDER (12/28/2012 12:36 PM CHEMICAL LABORATORY TECHNICIAN) Anatomical Region Laterality Modality Other Narrative 12/28/2012 12:36 PM CHEMICAL LABORATORY TECHNICIAN Procedure Note Document, Scanned - 12/28/2012 12:36 PM CST Scanned Document IMAGING
[2025-01-27 18:22] VITALS: BP 130/83; PULSE 101; RESP 16; TEMP 36.7; O2SAT 100
--- NOTE | 2025-01-27 18:54 | ED_ITS ---
HPI - General Adult General Chief complaint: Extremity Injury, Lower Stated complaint: Right ankle injury Source: patient Mode of arrival: wheelchair Limitations: no limitations History of Present Illness HPI narrative: Patient presents for evaluation of right foot and ankle pain. Symptom onset just prior to arrival. She was walking down steps with laundry when she twisted her ankle. She fell and landed on her buttocks. She denied her head. No loss of consciousness. She now reports 8/10 pain in the lateral aspect of the right ankle and right foot. She states her fifth digit of the right foot feels numb. She is having problems bearing weight. She has not taken any medication to assist with her symptoms. Related Data Home Medications ?Medication ?Instructions ?Recorded ?Confirmed ?Last Taken ?Type norethindrone 1 mg-ethinyl tablet 03/09/20 Unknown History estradiol 20 mcg (21)-iron 75 mg (7) tablet (12/11 (28)) Allergies Allergy/AdvReac Type Severity Reaction Status Date / Time No Known Drug Allergies Allergy Unknown Unknown Verified 01/27/25 18:23 Review of Systems Review of Systems: CONSTITUTIONAL: Denies fever, chills, or sweats. EYES: Denies visual changes, redness, or discharge. ENT: Denies rhinorrhea, congestion, sore throat, or otalgia. CARDIOVASCULAR: Denies chest pain, palpitations, or edema. RESPIRATORY: Denies cough or dyspnea. GASTROINTESTINAL: Denies abdominal pain, nausea, vomiting, or diarrhea. GENITOURINARY: Denies dysuria or hematuria. SKIN: Denies rash or itching. MUSCULOSKELETAL: Reports pain in the right ankle and foot NEUROLOGIC: Reports numbness in the 5th digit of the right foot. Denies headache, dizziness, or weakness. PSYCHIATRIC: Denies anxiety or depression. [facility]LY [facility] Past Medical History Medical History Bipolar disorder Allergies Surgical History Surgical History No significant past surgical history Family History Family History Mother Asthma Social History Social History Smoking status: Never smoker Second hand tobacco smoke exposure: No Alcohol intake: never Substance use: never Living arrangements: with family Occupation/Education: occupation Gender identity (if verbalized by the patient): Female Exam Narrative: GENERAL: Seated in wheelchair. Well-appearing, well-nourished, and in no acute distress. HEAD: Normocephalic, atraumatic. EYES: PERRLA and EOMI. ENT: Nares clear, no rhinorrhea or epistaxis. Mucous membranes moist. Oropharynx without tonsillar hypertrophy exudate or other lesions. Bilateral TMs pearly turner nonbulging NECK: Supple. No adenopathy or masses. No carotid bruits or JVD CHEST: Clear to auscultation. No respiratory distress. No wheezes rales or rhonchi HEART: Regular rate and rhythm. No murmur heard. Normal peripheral pulses. ABDOMEN: Soft, nontender, nondistended, normal active bowel sounds. EXTREMITIES: Able to dorsi and plantar flex right foot. There is tenderness beneath the right lateral malleolus and along the 5th metatarsal of the right foot. There is also tenderness over the dorsal aspect of the right foot. SKIN: Warm, dry, no rash. NEURO: No focal deficits. Alert and oriented x3. PSYCH: Normal mood and affect. Course Course Emergency Course: This is a 24 old female who presented for evaluation of right foot and ankle pain. X-rays were negative for fracture. Exam consistent with sprain. Provided with Erik wrap and crutches. Advised on RICE therapy. Declined analgesics while here. Recommend NSAIDs at home. Follow up with primary provider. Go to the ER for worsening symptoms. Patient in agreement with plan of care. Level of Care: Express Care Visit Vital Signs Vital signs: Vital Signs Temperature 36.7 C 01/27/25 18:22 Pulse Rate 101 H 01/27/25 18:22 Respiratory Rate 16 01/27/25 18:22 Blood Pressure 130/83 01/27/25 18:22 Pulse Oximetry 100 01/27/25 18:22 Oxygen Delivery Room Air 01/27/25 18:22 Temperature 36.7 C 01/27/25 18:22 Pulse Rate 101 H 01/27/25 18:22 Respiratory Rate 16 01/27/25 18:22 Blood Pressure 130/83 01/27/25 18:22 Pulse Oximetry 100 01/27/25 18:22 Oxygen Delivery Room Air 01/27/25 18:22 Medical Decision Making Vital Signs Vital Signs: Vital Signs Temperature 36.7 C 01/27/25 18:22 Pulse Rate 101 H 01/27/25 18:22 Respiratory Rate 16 01/27/25 18:22 Blood Pressure 130/83 01/27/25 18:22 Pulse Oximetry 100 01/27/25 18:22 Oxygen Delivery Room Air 01/27/25 18:22 Temperature 36.7 C 01/27/25 18:22 Pulse Rate 101 H 01/27/25 18:22 Respiratory Rate 16 01/27/25 18:22 Blood Pressure 130/83 01/27/25 18:22 Pulse Oximetry 100 01/27/25 18:22 Oxygen Delivery Room Air 01/27/25 18:22 Imaging Data Radiologist's impression: XR foot RT min 3V Ordering provider: LUIS Madrid History: . Impression 1 cm from the sigrid by. Pt fell and twisted ankle coming down stairs . Comparison: None. FINDINGS: BONES: No acute fracture or dislocation. JOINT SPACES: Normal. No tarsal coalition. SOFT TISSUES: Normal. IMPRESSION: No acute osseous abnormality of the right foot. XR ankle RT min 3V Ordering provider: LUIS Madrid History: . Fall . Comparison: None. FINDINGS: BONES: No acute fracture or dislocation. JOINT SPACES: Normal. SOFT TISSUES: Normal. Calcaneus spur. IMPRESSION: No acute osseous abnormality of the right ankle. Discharge Plan Discharge Clinical Impression: Right ankle sprain Patient Disposition: Home, Self-Care Condition: Stable Instructions: Antibiotic Form, Ankle Sprain (ED) Additional Instructions: Ibuprofen should help with pain Apply ice Keep leg elevated Use crutches as needed Patient Language: [place] Prescriptions: No Action norethindrone-e.estradiol-iron [12/11 (28)] 1 mg-20 mcg (21)/75 mg (7) tablet Follow-up/Referrals: Aram Alaniz MD [Physician] - Time of Disposition: 19:17
== END 2025-01-27 19:53 | disposition home or self-care (01) ==
PROVIDERS: Emergency Provider Nurse Practitioner
DX: S93.401A Sprain of unspecified ligament of right ankle, initial encounter (principal); X50.9XXA Other and unspecified overexertion or strenuous movements or postures, initial encounter
CPT/HCPCS: 73610; 73630; 99213; G0463